=== PATIENT | female | born 1990 | race Caucasian/White ===

== ENCOUNTER 2017-01-23 23:03 | Emergency (ER) | payer SELFPAY ==
[~2017-01-23] VITALS: Ht 160 cm; Wt 88.0 kg
[2017-01-24] MEDS ORDERED: ACETAMINOPHEN 325MG TABLET PO ONE (06:00)
[2017-01-24] MEDS ORDERED: DEXAMETHASONE 10 MG/ML VIAL IM ONE (06:30)
[2017-01-24] MEDS ORDERED: LORAZEPAM 1MG TABLET PO ONE (06:30)
[2017-01-24] MEDS ORDERED: KETOROLAC 60MG/2ML VIAL IM ONE (06:30)
[2017-01-24 06:34] VITALS: BP 130/84
== END 2017-01-24 07:12 | disposition home or self-care (01) ==
LOC: ER 23:03
DX: M54.40 Lumbago with sciatica, unspecified side (principal)
CPT/HCPCS: 96372; 99284; J1100; J1885; Z7610